=== PATIENT | male | born 1995 | race Caucasian/White ===

== ENCOUNTER 2017-04-09 22:52 | Day surgery (SDC) | payer OTHER ==
[~2017-04-09] VITALS: Ht 175.3 cm; Wt 71.4 kg
[2017-04-09 23:20] LABS: HEMATOCRIT 43.1 % (38.0-50.0); MCH 29.8 PG (29.0-34.0); MCHC 35.3 G/DL (30.0-36.0); MCV 84.5 FL (86-99); MEAN PLAT.VOLUME 10.8 uM^3 (9.0-12.4); PLATELET COUNT 280 K/uL (156-360); RBC DIS.WIDTH-CV 12.2 % (11.8-14.6); RBC DIS.WIDTH-SD 37.2 % (39-53); WHITE BLOOD COUNT 18.2 K/uL (4.1-10.2)
[2017-04-09 23:35] LABS: CHLORIDE 106 mEq/L (99-109); SODIUM 141 mEq/L (136-147)
[2017-04-09 23:37] LABS: GLUCOSE 116 mg/dL (70-99)
[2017-04-09 23:38] LABS: ANION GAP 12 MEQ/L (2-14)
[2017-04-09 23:39] LABS: TOTAL BILIRUBIN 1.1 mg/dL (0.0-1.0)
[2017-04-09 23:40] LABS: ALKALINE PHOSPHATASE 86 IU/L (3-129)
[2017-04-09 23:42] LABS: UREA NITROGEN (BUN) 12 mg/dL (9-23)
[2017-04-09 23:46] LABS: GFR ESTIMATE (CALCULATED) > 59 mL/min/
[2017-04-10] MEDS ORDERED: ADVIL,NUPRIN,M200 MG PO (01:41)
[2017-04-10] MEDS ORDERED: COLACE100 MG PO (07:29)
[2017-04-10] MEDS ORDERED: PERCOCET 5/31 TABLET PO (07:29)
[2017-04-10 07:30] VITALS: BP 141/71
[2017-04-10 07:45] LABS: HEMATOCRIT 36.6 % (38.0-50.0); MCHC 35.5 G/DL (30.0-36.0); MCV 84.3 FL (86-99); MEAN PLAT.VOLUME 10.5 uM^3 (9.0-12.4); PLATELET COUNT 241 K/uL (156-360); RBC DIS.WIDTH-CV 12.2 % (11.8-14.6); RBC DIS.WIDTH-SD 36.7 % (39-53); RED BLOOD COUNT 4.34 M/uL (4.00-5.50); WHITE BLOOD COUNT 12.6 K/uL (4.1-10.2)
[2017-04-10 12:20] VITALS: BP 144/80
[2017-04-10 16:38] VITALS: BP 130/68
[2017-04-10 19:25] VITALS: BP 130/76
[2017-04-10 23:55] VITALS: BP 134/70
[2017-04-11 03:50] VITALS: BP 129/87
[2017-04-11 06:59] LABS: HEMATOCRIT 35.7 % (38.0-50.0); MCH 29.4 PG (29.0-34.0); MCHC 34.2 G/DL (30.0-36.0); MEAN PLAT.VOLUME 10.9 uM^3 (9.0-12.4); PLATELET COUNT 237 K/uL (156-360); RBC DIS.WIDTH-CV 12.5 % (11.8-14.6); RBC DIS.WIDTH-SD 39.1 % (39-53); RED BLOOD COUNT 4.15 M/uL (4.00-5.50); WHITE BLOOD COUNT 8.9 K/uL (4.1-10.2)
[2017-04-11 07:20] VITALS: BP 169/85
[2017-04-11 13:08] VITALS: BP 138/90
[2017-04-11] MEDS ORDERED: AUGMENTIN875 MG PO (14:01)
== END 2017-04-11 17:09 | disposition home or self-care (01) ==
LOC: EME 22:52 → SDC 04-10 04:11 → ENRESERV 04-10 04:33 → 2SOUTH 04-10 06:39 → 2EASTP 04-10 07:21
PROVIDERS: Surgery
PROC: 0DTJ4ZZ Resection of Appendix, Percutaneous Endoscopic Approach (ICD-10-PCS; principal; 2017-04-10)
DX: K35.2 Acute appendicitis with generalized peritonitis (principal); K38.1 Appendicular concretions; R11.2 Nausea with vomiting, unspecified
CPT/HCPCS: 74176; 80053; 81003; 85027; 87040; 87070; 87075; 87205; 88304; 99281; 99285; G0378; J1100; J1650; J2175; J2250; J2405; J2543; J3010; J7030; J7050